=== PATIENT | female | born 1990 | race Two or more races ===

== ENCOUNTER 2019-03-11 22:38 | Inpatient (IN) | payer MEDICAID ==
[~2019-03-11] VITALS: Ht 167.6 cm; Wt 54.4 kg
[2019-03-11 23:50] VITALS: BP 104/61
[2019-03-12] VITALS: BP 104/61
[2019-03-12] MEDS: methylPREDNISolone SOD SUCC 125 MG/2ML VIAL IV SCH ×5 (00:30→16:44)
[2019-03-12] MEDS ORDERED: HYDROCODONE/APAP 5/325MG 1 EACH TABLET PO PRN (00:30)
[2019-03-12] MEDS ORDERED: MAG HYDROX/AL HYDROX/SIMETH 30 ML UDC PO PRN (00:30)
[2019-03-12] MEDS ORDERED: MAGNESIUM HYDROXIDE 30 ML UDC PO PRN (00:30)
[2019-03-12] MEDS: IV NS 0.9% 1,000 ML IV PRN ×2 (00:55→23:17)
[2019-03-12] MEDS: HYDROCODONE/APAP 10/325MG 1 EA TABLET PO PRN ×2 (00:56→23:18)
--- NOTE | 2019-03-12 00:58 | NUR ---
MS RN NOTES PATIENT COMPLAINING OF ABDOMINAL PAIN, 8/10 SHARP. NORCO 10/325 PRN GIVEN. HEATING PAD ON ABDOMEN PLACED. WILL CONTINUE TO MONITOR.
[2019-03-12 01:00] LABS: BASOPHILS # (AUTO) 0.1 /CMM (0.0-0.2); BASOPHILS % (AUTO) 1.4 % (0.0-2.0); EOSINOPHILS % (AUTO) 4.5 % (0.0-6.0); HEMATOCRIT 34 % (33-45); HEMOGLOBIN 10.9 g/dL (11.5-14.8); LYMPHOCYTES # (AUTO) 2.7 /CMM (0.8-4.8); MEAN CORPUSCULAR HGB CONC 32 g/dl (31.0-36.0); MEAN CORPUSCULAR VOLUME 78 fL (82-100); MONOCYTES # (AUTO) 0.4 /CMM (0.1-1.30); MONOCYTES % (AUTO) 8.6 % (2.0-12.0); NEUTROPHILS # (AUTO) 1.7 /CMM (1.8-8.9); NEUTROPHILS % (AUTO) 33.5 % (43.0-81.0); PLATELET COUNT (AUTO) 228 /CMM (150-450); RED BLOOD CELL COUNT(AUTO) 4.37 MIL/uL (4.0-5.2); WHITE BLOOD COUNT (AUTO) 5.2 K/uL (4.3-11.0)
[2019-03-12 01:04] LABS: ALBUMIN 2.6 g/dL (3.4-5.0); BILIRUBIN,TOTAL 0.2 mg/dL (0.2-1.0); CALCIUM, SERUM 8.2 mg/dL (8.5-10.1); CREATININE 0.8 mg/dL (0.6-1.3); PHOSPHORUS 3.7 mg/dL (2.5-4.9); POTASSIUM 3.5 mmol/L (3.5-5.1)
[2019-03-12 01:14] LABS: THYROID STIMULATING HORMONE 2.905 uIU/mL (0.358-3.74)
--- NOTE | 2019-03-12 01:17 | NUR ---
MS RN NOTES PATIENT REFUSED SOLUMEDROL, EXPLAINED THE REASON WHY IT WAS ADMINISTERED AND EDUCATED. STILL REFUSED MEDICATION, WANTS TO TALK TO DOCTOR FIRST BECAUSE MEDICATION HAS NOT BEEN WORKING DURING PREVIOUS VISITS AND MAKES HER SWELL. NORCO 10-325 WAS GIVEN FOR PAIN. WILL CONTINUE TO MONITOR.
--- NOTE | 2019-03-12 01:19 | NUR ---
MS EVAPORATOR REPAIRER NOTES PATIENT RECEIVED VIA GURNEY ACCOMPANIED BY WILL AND CHAVA DIRECT ADMISSION FROM [facility]. A/O x4, ABLE TO AMBULATE AND MAKE NEEDS KNOWN. STABLE ON RA, BREATHING EVEN AND UNLABORED, NO SOB COMPLAINTS. NO ACUTE DISTRESS NOTED. PATIENT HAS COMPLAINTS OF ABDOMINAL PAIN. IV LOCATED ON L AC #20. ORIENTED PATIENT TO ROOM AND STAFF. SAFETY PRECAUTIONS IN PLACE WITH BED IN LOWEST POSITION, BREAKS ON, SIDE RAILS UP X2, AND CALL LIGHT WITHIN REACH. ALL BELONGINGS WERE ACCOUNTED FOR. NO WOUNDS PRESENT. WILL CONTINUE TO MONITOR.
[2019-03-12] MEDS: MORPHINE SULFATE INJ 2 MG/ML DISP.SYRIN IV PRN ×6 (02:15→21:42)
--- NOTE | 2019-03-12 02:18 | NUR ---
MS RN NOTES PATIENT COMPLAINING OF PAIN 8/10 ON ABDOMINAL AREA. SHARP. MORPHINE PRN GIVEN. WILL CONTINUE TO MONITOR.
[2019-03-12] MEDS: ONDANSETRON HCL/PF 4 MG/2 ML VIAL IVP PRN (04:52)
--- NOTE | 2019-03-12 04:57 | NUR ---
MS RN NOTES PATIENTS FEELING NAUSEATED. ZOFRAN PRN GIVEN. WILL CONTINUE TO MONITOR.
--- NOTE | 2019-03-12 06:49 | NUR ---
MS RN CLOSING NOTES PATIENT CURRENTLY RESTING IN BED WITH AT BEDSIDE, A/O X4 ABLE TO MAKE NEEDS KNOWN AND ABLE TO AMBULATE. STABLE ON RA WITH BREATHING EVEN AND UNLABORED, NO SOB NOTED. NO SIGNS OF ACUTE DISTRESS/ NO CURRENT COMPLAINTS OF PAIN, JUST SLIGHT DISCOMFORT IN THE ABDOMINAL AREA. IV LOCATED ON L AC #20 RUNNING NS @ 75 ML/HR. ALL NEEDS WERE ATTENDED TO THROUGHOUT THE NIGHT. SAFETY PRECAUTIONS IN PLACE WITH BED IN LOWEST POSITION, BREAKS ON, AND CALL LIGHT WITHIN REACH. WILL ENDORSE TO ONCOMING SHIFT ABOUT PABLITO.
--- NOTE | 2019-03-12 07:00 | NUR ---
MS/RN Opening note Received patient AOx4, able to response all stimuli, denies any n/v, discomfort or pain at this time, at bed side. Patient refused IVF stated "I'll take fluid instead of that(IVF)!!" No s/s of dehydration observed. Respiratory even unlabored, skin is warm to touch, kept low bed position with elevated HOB. Call light within reach, will continue to monitor.
[2019-03-12] MEDS: PANTOPRAZOLE 40 MG TABLET.DR PO SCH (07:45)
[2019-03-12 08:00] VITALS: BP_SYST 94; BP_SYST 95; BP_DIAS 50
[2019-03-12 08:17] VITALS: BP 88/53
[2019-03-12 11:45] VITALS: BP 114/71
[2019-03-12 16:00] VITALS: BP 112/70
--- NOTE | 2019-03-12 18:45 | NUR ---
MS/RN Closing note Pt in bed, at bed side. given morphine 4mg via IV for abdominal pain at 1840. No s/s of respiratory distress, skin is warm to touch, kept dry. IV site is intact. Call light within reach, will continue to monitor.
--- NOTE | 2019-03-12 19:25 | NUR ---
MS/RN OPENING NOTES RECEIVED PATIENT IN BED, AWAKE, ABLE TO SIT AND STAND AND AMBULATE WITH ASSISTANCE, DISCUSSED PLAN OF CARE, RESPIRATIONS EVEN AND UNLABORED, LAST PAIN MEDICATION GIVEN EARLIER BY AM RN. PATIENT REPORTED PAIN 4/10 AT THIS TIME, HAD ONE BM AND ASKED FOR ICE CHIPS, BED LOCKED, CALL LIGHTS WITHIN REACH, IV SITE PATEN INFUSING 75 ML/HR. WILL MONITOR FOR ANY CHANGES.
[2019-03-12 20:00] VITALS: BP 98/69
--- NOTE | 2019-03-12 21:48 | NUR ---
MS/RN NOTES PATIENT REPORTED PAIN SEVERE 9/10 WITH GRIMACE, GUARDING, MOANING ON MID ABDOMEN, COMFORT MEASURE PROVIDED, DISTRACTED WITH FAMILY INVOLVEMENT AND WATCHING TV CONSTANT PAIN. MORPHINE 4MG IVP ADMINISTERED. PATIENT TOLERATED . WILL MONITOR RELIEF, DISCUSSED SAFETY AND VERBALIZED UNDERSTANDING.
--- NOTE | 2019-03-12 23:24 | NUR ---
MS/RN NOTES BREAKTHROUGH PAIN NORCO 10-325 MG PO GIVEN PO PER PATIENT REQUEST SEVERE PAIN 9/10 IN ABDOMEN, TOLERATED WELL. WILL MONITOR.
[2019-03-13] MEDS: ZOLPIDEM TARTRATE 5 MG TABLET PO PRN ×2 (00:12→23:39)
--- NOTE | 2019-03-13 01:27 | NUR ---
MS/RN NOTES PATIENT IN EXTREME PAIN, UNABLE TO SLEEP, IV REINSERTED ON LEFT FOREARM GAUGE 22. REQUESTED FOR PAIN IV MEDICATION MORPHINE 4 MG. WILL MONITOR.
[2019-03-13] MEDS: MORPHINE SULFATE INJ 2 MG/ML DISP.SYRIN IV PRN ×2 (01:31→06:05)
--- NOTE | 2019-03-13 06:11 | NUR ---
MS/RN NOTES PATIENT AWOKEN FROM SLEEP, GUARDING AND GRIMACING, AMBULATING TO BATHROOM TO RELIEF PAIN, REQUESTED PAIN MEDICATION MORPHINE IVP 4MG, AFDMINISTERED AND MONITORING RELIEF.
[2019-03-13 06:31] LABS: BASOPHILS # (AUTO) 0.1 /CMM (0.0-0.2); BASOPHILS % (AUTO) 1.4 % (0.0-2.0); EOSINOPHILS % (AUTO) 6.5 % (0.0-6.0); HEMATOCRIT 37 % (33-45); HEMOGLOBIN 11.6 g/dL (11.5-14.8); LYMPHOCYTES # (AUTO) 2.8 /CMM (0.8-4.8); LYMPHOCYTES % (AUTO) 48.4 % (20.0-44.0); MEAN CORPUSCULAR HGB CONC 32 g/dl (31.0-36.0); MEAN CORPUSCULAR VOLUME 78 fL (82-100); MONOCYTES # (AUTO) 0.5 /CMM (0.1-1.30); NEUTROPHILS # (AUTO) 2.1 /CMM (1.8-8.9); NEUTROPHILS % (AUTO) 35.7 % (43.0-81.0); PLATELET COUNT (AUTO) 226 /CMM (150-450); RED BLOOD CELL COUNT(AUTO) 4.68 MIL/uL (4.0-5.2); WHITE BLOOD COUNT (AUTO) 5.9 K/uL (4.3-11.0)
[2019-03-13 06:44] LABS: CALCIUM, SERUM 8.6 mg/dL (8.5-10.1); CREATININE 0.9 mg/dL (0.6-1.3); PHOSPHORUS 4.4 mg/dL (2.5-4.9); POTASSIUM 4.2 mmol/L (3.5-5.1)
--- NOTE | 2019-03-13 07:30 | NUR ---
MS/RN Opening note Patient received resting in bed, A.O x4, partner is at the bedside. Patient is showing no signs of acute distress or SOB, breathing in even and unlabored, saturating >95% on RA. IV line is clean and patent. Bed is in lowest position, side rails x2 in upright position, call light is within reach and patient is aware of how to call for assistance when needed. Safety precautions enforced. Will continue with plan of care.
--- NOTE | 2019-03-13 07:33 | NUR ---
MS/RN CLOSING NOTES PATIENT AWAKE, ALERT, X4 ABLE TO VERBALIZE NEEDS, PAIN MEDICATION AND MONITORED FOR RELIEF, DISCUSSED OPLAN OF CARE WITH AM RN , RESPIRATIONS EVEN AND UNLABORED. KEPT COMFORTABLE. MONITORED FOR ANY CHANGES. ON IV FLUIDS. BED LOCKED, CALL LIGHTS WITHIN REACH.
[2019-03-13 08:00] VITALS: BP 111/72
[2019-03-13] MEDS: methylPREDNISolone SOD SUCC 125 MG/2ML VIAL IV SCH ×2 (08:21→17:00)
[2019-03-13] MEDS: PANTOPRAZOLE 40 MG TABLET.DR PO SCH (08:22)
[2019-03-13] MEDS ORDERED: LORAZEPAM INJ 2 MG/ML VIAL IV PRN (08:30)
[2019-03-13] MEDS: HYDROMORPHONE 1 MG/1 ML DISP.SYRIN IV PRN ×4 (09:22→21:29)
[2019-03-13 16:00] VITALS: BP 111/63
--- NOTE | 2019-03-13 19:34 | NUR ---
MS/RN closing note Patient received resting in bed, A.O x4. Patient is showing no signs of acute distress or SOB, breathing in even and unlabored, saturating >95% on RA. IV line is clean and patent. Bed is in lowest position, side rails x2 in upright position, call light is within reach and patient is aware of how to call for assistance when needed. Safety precautions enforced. Will endorse to shift foreman for leidy.
--- NOTE | 2019-03-13 19:50 | NUR ---
MS RN NOTE: PATIENT RESTING IN BED, NO ACUTE DISTRESS NOTED. BREATHING EVEN AND UNLABORED, NO SOB NOTED. IV TO LFA IN PLACE. BED LOCKED AND IN LOWEST POSITION, CALL LIGHT IN REACH. WILL CONTINUE TO MONITOR.
[2019-03-13 20:00] VITALS: BP 106/69
--- NOTE | 2019-03-13 21:30 | NUR ---
MS RN NOTE: PATIENT COMPLAINS OF ABDOMINAL PAIN 8/, DILAUDID 1MG IV GIVEN PER MD ORDER. WILL CONTINUE TO MONITOR.
[2019-03-14] MEDS: HYDROMORPHONE 1 MG/1 ML DISP.SYRIN IV PRN ×6 (00:45→22:42)
[2019-03-14] MEDS: IV NS 0.9% 1,000 ML IV PRN (05:45)
--- NOTE | 2019-03-14 06:15 | NUR ---
MS RN NOTE: PATIENT RESTING IN BED, NO ACUTE DISTRESS NOTED. BREATHING EVEN AND UNLABORED, NO SOB NOTED. IV TO LFA IN PLACE. PATIENT COMPLAINS OF ABDOMINAL PAIN 11/21, DILAUDID 1MG IV GIVEN PER MD ORDER. BED LOCKED AND IN LOWEST POSITION, CALL LIGHT IN REACH. WILL ENDORSE TO DAY NURSE TO CONTINUE TO WITH PLAN OF CARE.
--- NOTE | 2019-03-14 07:30 | NUR ---
MS/RN Opening note Patient received resting in bed, A/O x4, breathing is even and unlabored, saturating >95% on RA. Patient is in no acute distress at this time. IV line is clean and patent. Patient is able to ambulate to the bathroom, skin is intact. Patient has no new concerns at this time. Bed is in lowest position, side rails x2 in upright position, call light is within reach and patient is aware of how to call for assistance when needed. Partner at the bedside. Will continue with plan of care.
[2019-03-14] MEDS: PANTOPRAZOLE 40 MG TABLET.DR PO SCH (09:20)
[2019-03-14] MEDS: MESALAMINE 400 MG CAP PO SCH ×3 (09:20→17:48)
[2019-03-14 12:29] LABS: CALCIUM, SERUM 8.5 mg/dL (8.5-10.1); CREATININE 0.8 mg/dL (0.6-1.3)
[2019-03-14 12:41] LABS: BASOPHILS # (AUTO) 0.1 /CMM (0.0-0.2); BASOPHILS % (AUTO) 1.4 % (0.0-2.0); HEMATOCRIT 38 % (33-45); HEMOGLOBIN 12.1 g/dL (11.5-14.8); LYMPHOCYTES % (AUTO) 40.7 % (20.0-44.0); MEAN CORPUSCULAR HGB CONC 32 g/dl (31.0-36.0); MEAN CORPUSCULAR VOLUME 79 fL (82-100); MONOCYTES # (AUTO) 0.5 /CMM (0.1-1.30); MONOCYTES % (AUTO) 9.4 % (2.0-12.0); NEUTROPHILS % (AUTO) 39.5 % (43.0-81.0); PLATELET COUNT (AUTO) 231 /CMM (150-450); RED BLOOD CELL COUNT(AUTO) 4.84 MIL/uL (4.0-5.2)
[2019-03-14] MEDS ORDERED: BELLADONNA ALK/PHENOBARB TAB 16.2 MG TABLET PO PRN (13:30)
[2019-03-14] MEDS ORDERED: PHENOBARBITAL 30 MG TABLET PO PRN (14:00)
[2019-03-14] MEDS: ONDANSETRON HCL/PF 4 MG/2 ML VIAL IVP PRN (14:45)
[2019-03-14 16:00] VITALS: BP 108/74
--- NOTE | 2019-03-14 19:13 | NUR ---
MS/RN Closing note Patient is resting in bed, A/O x4, breathing is even and unlabored, saturating >95% on RA. Patient is in no acute distress at this time. IV line is clean and patent. Patient is able to ambulate to the bathroom, skin is intact. Patient refused linen change and shower today. Patient requests for privacy. All patient needs met, all due meds given. Bed is in lowest position, side rails x2 in upright position, call light is within reach and patient is aware of how to call for assistance when needed. Partner at the bedside. Will endorse to warehouse worker 2nd shift.
--- NOTE | 2019-03-14 20:00 | NUR ---
MS RN NOTES RECEIVED PATIENT AWAKE IN BED WITH NO DISTRESS NOTED. CALL LIGHT WITHIN REACH. FAMILY AT BEDSIDE. NO C/O PAIN OR DISCOMFORT. PERIPHERAL LINE INTACT AND PATENT. ENCOURAGED USE OF CALL LIGHT FOR ASSISTANCE AND VERBALIZED GOOD UNDERSTANDING. ROOM FREE OF CLUTTER AND BELONGINGS KEPT NEAR BEDSIDE. BED IN LOW LOCK SETTING. WILL CONTINUE TO MONITOR.
[2019-03-15] MEDS: HYDROCODONE/APAP 10/325MG 1 EA TABLET PO PRN (00:02)
--- NOTE | 2019-03-15 00:17 | NUR ---
PATIENT WITH C/O URINARY FREQUENCY, BURNING, AND BLADDER SPASMS. DR. EL MADE AWARE WITH ORDERS FOR UA AND PYRIDIUM [id number]. ORDERS NOTED AND CARRIED OUT. PATIENT AWARE AND VERBALIZED GOOD UNDERSTANDING.
--- NOTE | 2019-03-15 00:18 | NUR ---
URINE SPECIMEN OBTAINED VIA CLEAN CATCH
[2019-03-15] MEDS ORDERED: PHENAZOPYRIDINE HCL 200 MG TABLET PO SCH (00:30)
[2019-03-15 00:52] LABS: APPEARANCE,URINE CLEAR (CLEAR); BILIRUBIN,URINE NEGATIVE (NEGATIVE); BLOOD, URINE SMALL Ery/uL (NEGATIVE); COLOR,URINE YELLOW (YELLOW); KETONES,URINE NEGATIVE (NEGATIVE); LEUKOCYTE ESTERASE ,URINE NEGATIVE (NEGATIVE); NITRITE, URINE NEGATIVE (NEGATIVE); PROTEIN,URINE NEGATIVE (NEGATIVE); UGLUCOSE NEGATIVE (NEGATIVE); UROBILINOGEN,URINE 0.2 EU/dL (0.2)
[2019-03-15] MEDS: ZOLPIDEM TARTRATE 5 MG TABLET PO PRN ×2 (00:52→21:58)
--- NOTE | 2019-03-15 02:44 | NUR ---
PYRIDIUM NOT AVAILABLE, WILL ADMINISTER IN AM
[2019-03-15] MEDS: HYDROMORPHONE 1 MG/1 ML DISP.SYRIN IV PRN ×5 (03:12→20:43)
--- NOTE | 2019-03-15 07:15 | NUR ---
ms rn received on bed, awake,alert,oriented x4,respirations even and unlabored,not in any form of distress,came in w/ ulcerative colitis, w/ pain at this time,will monitor patient.
--- NOTE | 2019-03-15 07:16 | NUR ---
MS RN NOTES PATIENT ASLEEP IN BED WITH NO DISTRESS NOTED. CALL LIGHT WITHIN REACH. BOYFRIEND AT BEDSIDE. NO FURTHER C/O PAIN OR DISCOMFORT. ALL DUE MEDS GIVEN ORDERED WITH NO ASE. PERIPHERAL LINE INTACT AND PATENT. BED IN LOW LOCK SETTING. ROOM FREE OF CLUTTER AND BELONGINGS KEPT NEAR BEDSIDE. WILL ENDORSE TO ONCOMING SHIFT.
[2019-03-15] MEDS: PANTOPRAZOLE 40 MG TABLET.DR PO SCH (07:55)
[2019-03-15 08:00] VITALS: BP 119/75
[2019-03-15] MEDS: MESALAMINE 400 MG CAP PO SCH ×3 (08:27→16:27)
[2019-03-15] MEDS: PHENAZOPYRIDINE HCL 200 MG TABLET PO SCH ×2 (08:28→16:27)
--- NOTE | 2019-03-15 09:00 | NUR ---
ms [facility] breakfast served,due meds given,barely tolerated.
--- NOTE | 2019-03-15 09:20 | NUR ---
ms gucci was seen by edwin mariano/ orders made and carried out.
[2019-03-15 09:21] LABS: BASOPHILS # (AUTO) 0.1 /CMM (0.0-0.2); BASOPHILS % (AUTO) 0.9 % (0.0-2.0); EOSINOPHILS % (AUTO) 4.8 % (0.0-6.0); HEMATOCRIT 37 % (33-45); HEMOGLOBIN 11.6 g/dL (11.5-14.8); LYMPHOCYTES # (AUTO) 2.3 /CMM (0.8-4.8); LYMPHOCYTES % (AUTO) 24.8 % (20.0-44.0); MEAN CORPUSCULAR HGB CONC 32 g/dl (31.0-36.0); MEAN CORPUSCULAR VOLUME 79 fL (82-100); MONOCYTES # (AUTO) 0.7 /CMM (0.1-1.30); MONOCYTES % (AUTO) 8.2 % (2.0-12.0); NEUTROPHILS # (AUTO) 5.6 /CMM (1.8-8.9); NEUTROPHILS % (AUTO) 61.3 % (43.0-81.0); PLATELET COUNT (AUTO) 203 /CMM (150-450); RED BLOOD CELL COUNT(AUTO) 4.67 MIL/uL (4.0-5.2); WHITE BLOOD COUNT (AUTO) 9.1 K/uL (4.3-11.0)
[2019-03-15 09:29] LABS: CALCIUM, SERUM 8.7 mg/dL (8.5-10.1); CREATININE 0.8 mg/dL (0.6-1.3); POTASSIUM 3.9 mmol/L (3.5-5.1)
[2019-03-15] MEDS: NITROFURANTOIN/NITROFURAN MAC 100 MG CAPSULE PO SCH ×2 (13:28→20:15)
[2019-03-15] MEDS: ONDANSETRON HCL/PF 4 MG/2 ML VIAL IVP PRN (13:53)
[2019-03-15] MEDS: ACETAMINOPHEN 325 MG TABLET PO PRN ×2 (13:53→20:15)
[2019-03-15 16:00] VITALS: BP 105/65
--- NOTE | 2019-03-15 17:00 | NUR ---
ms rn on bed, no distress noted.
--- NOTE | 2019-03-15 18:55 | NUR ---
ms rn on bed, no distress noted.
--- NOTE | 2019-03-15 19:29 | NUR ---
MS RN OPENING NOTE RECEIVED PATIENT IN BED. A/OX4. TOLERATING ROOM AIR. RESPIRATIONS ARE EVEN AND UNLABORED. NO S/S SOB NOTED. STATES SHE IS IN PAIN. INFORMED HER OF WHEN THE NEXT DOSE OF PAIN MEDICATIONS IS AVAILABLE. IN NO APPARENT DISTRESS. IV ACCESS IN LFA#22 CURRENTLY PATENT AND SALINE LOCKED. BED IS LOW AND LOCKED, HOB ELEVATED IN SEMI FOWLERS, SIDE RIALS UPX2. FAMILY AT BEDSIDE. CALL LIGHT WITHIN REACH. WILL CONTINUE TO MONITOR.
[2019-03-15 20:00] VITALS: BP_SYST 115; BP_SYST 119; BP_DIAS 59; BP_DIAS 71
--- NOTE | 2019-03-15 20:16 | NUR ---
MS RN NOTE ADMINISTERED PRN TYLENOL 650MG FOR C/O HEADACHE. WILL CONTINUE TO MONITOR.
--- NOTE | 2019-03-15 20:48 | NUR ---
MS RN NOTE ADMINISTERED PRN DILAUDID 1MG FOR PAIN 8/10 D/T ABDOMINAL PAIN AND ACHING MUSCLES. WILL CONTINUE TO MONITOR.
--- NOTE | 2019-03-15 21:53 | NUR ---
MS RN NOTE PATIENT NO LONGER COMPLAINS OF HEADACHE.
--- NOTE | 2019-03-15 21:58 | NUR ---
MS RN NOTE ADMINISTERED PRN AMBIEN 5MG PER PATIENT REQUEST FOR SLEEP. WILL CONTINUE TO MONITOR.
[2019-03-16] MEDS: HYDROMORPHONE 1 MG/1 ML DISP.SYRIN IV PRN ×2 (00:38→00:49)
--- NOTE | 2019-03-16 00:49 | NUR ---
MS RN NOTE ADMINISTERED PRN DILUADID 1MG FOR PAIN 9/10 IN ABDOMEN, AND ACHING MUSCLES. WILL CONTINUE TO MONITOR.
[2019-03-16] MEDS: ACETAMINOPHEN 325 MG TABLET PO PRN ×2 (05:25→09:28)
--- NOTE | 2019-03-16 05:25 | NUR ---
MS RN NOTE ADMINISTERED PRN TYLENOL 650MG FOR C/O HEADACHE AND MUSCLE ACHES. WILL CONTINUE TO MONITOR.
--- NOTE | 2019-03-16 06:09 | NUR ---
MS RN CLOSING NOTE PATIENT IN BED. A/OX4. REMAINS TOLERATING ROOM AIR. RESPIRATIONS ARE EVEN AND UNLABORED. NO SOB NOTED. MANAGED PAIN WITH DILAUDID 1MG THROUGHOUT NIGHT WELL TYLENL FOR C/O HEADACHE. NO DISTRESS NOTED. IV ACCESS MAINTAINED IN LFA#22 CURRENTLY PATENT AND SALINE LOCKED. BED IS LOW AND LOCKED, HOB FLAT, SIDE RIALS UPX2. FAMILY REMAINS AT BEDSIDE. CALL LIGHT WITHIN REACH. WILL ENDORSE TO NEXT SHIFT.
[2019-03-16 07:09] LABS: BASOPHILS # (AUTO) 0.1 /CMM (0.0-0.2); BASOPHILS % (AUTO) 1.3 % (0.0-2.0); EOSINOPHILS % (AUTO) 5.9 % (0.0-6.0); HEMATOCRIT 38 % (33-45); HEMOGLOBIN 12.1 g/dL (11.5-14.8); LYMPHOCYTES % (AUTO) 36.7 % (20.0-44.0); MEAN CORPUSCULAR HGB CONC 32 g/dl (31.0-36.0); MEAN CORPUSCULAR VOLUME 78 fL (82-100); MONOCYTES # (AUTO) 0.5 /CMM (0.1-1.30); MONOCYTES % (AUTO) 9.3 % (2.0-12.0); NEUTROPHILS # (AUTO) 2.6 /CMM (1.8-8.9); NEUTROPHILS % (AUTO) 46.8 % (43.0-81.0); PLATELET COUNT (AUTO) 230 /CMM (150-450); RED BLOOD CELL COUNT(AUTO) 4.89 MIL/uL (4.0-5.2); WHITE BLOOD COUNT (AUTO) 5.5 K/uL (4.3-11.0)
[2019-03-16 07:37] LABS: CALCIUM, SERUM 9.1 mg/dL (8.5-10.1); CREATININE 0.9 mg/dL (0.6-1.3)
[2019-03-16 08:00] VITALS: BP 116/75
--- NOTE | 2019-03-16 08:00 | NUR ---
RN NOTES RECEIVED PATIENT IN THE BED SLEEPING. V/S STABLE, NO ACUTE RESPIRATORY DISTRESS, BOYFRIEND NEXT TO THE BED. V/S WNL. CALL LIGHT NEAR TO REACH, IV ACCESS ON LEFT FA INTACT. CONTINUED MONITORING.
[2019-03-16] MEDS: NITROFURANTOIN/NITROFURAN MAC 100 MG CAPSULE PO SCH (09:21)
[2019-03-16] MEDS: PANTOPRAZOLE 40 MG TABLET.DR PO SCH (09:21)
[2019-03-16] MEDS: MESALAMINE 400 MG CAP PO SCH ×2 (09:22→12:12)
[2019-03-16] MEDS: PHENAZOPYRIDINE HCL 200 MG TABLET PO SCH (09:23)
--- NOTE | 2019-03-16 09:28 | NUR ---
RN NOTES ADMINISTERED TYLENOL 650 MG PO PRN FOR STOMACHACHE PER PATIENT REQUEST, ALSO ADMINISTERED SCHEDULED MEDICATION. NEXT TO THE BED. CALL LIGHT WITHIN TO REACH. SAFETY PRECAUTION MAINTAINED ALL THE TIME.
--- NOTE | 2019-03-16 11:03 | NUR ---
rn notes patient going to discharge home per hospitalist EVA Suarez's order. patient will follow primary MD.
[2019-03-16] MEDS ORDERED: PHEN-704 PO (12:25)
[2019-03-16] MEDS ORDERED: ACET325C7 PO (12:25)
[2019-03-16] MEDS ORDERED: ONDA4TAB5 PO (12:25)
[2019-03-16] MEDS ORDERED: NITR100C6 PO (12:25)
[2019-03-16] MEDS ORDERED: MESA400C3 PO (12:25)
--- NOTE | 2019-03-16 13:02 | NUR ---
MANAGER DISTRIBUTION CENTER NOTES PATIENT DISCHARGE AT THIS TIME GOING HOME. PATIENT STABLE, NO ACUTE RESPIRATORY DISTRESS, V/S WNL, REFUSED PAIN. MED RECONCILIATION AND DISCHARGE ORDER REVIEWED AND EXPLAINED TO PATIENT AND BOYFRIEND. PATIENT VERBALIZED UNDERSTANDING. BELONGING TO THE PATIENT/ PATIENT WILL FOLLOW PRIMARY MD. PRESCRIPTION ELECTRONICALLY DON VIA FISCAL ACCOUNTING CLERK REGGIE. PATIENT ESCORTED TO THE LOBBY FOR SAFETY. PATIENT SIGN PAPERWORK. PAPERWORK HANDED TO THE PATIENT, MANAGER PROCESS BY BOYFRIEND JULIO YANG PHONE # [phone].
== END 2019-03-16 13:00 | disposition home or self-care (01) | DRG 245 ==
LOC: MED 23:41
PROVIDERS: ADMIT Hospitalist; ATTEND Nurse Practitioner Acute Care
DX: K51.911 Ulcerative colitis, unspecified with rectal bleeding (principal); E43 Unspecified severe protein-calorie malnutrition; E88.09 Other disorders of plasma-protein metabolism, not elsewhere classified; D64.9 Anemia, unspecified; J45.909 Unspecified asthma, uncomplicated; D50.9 Iron deficiency anemia, unspecified; Z68.1 Body mass index [BMI] 19.9 or less, adult; Z87.440 Personal history of urinary (tract) infections
CPT/HCPCS: 36415; 80048-TC; 80053-TC; 80061-TC; 81000-TC; 83690-TC; 83735-TC; 84100-TC; 84443-TC; 84703-TC; 85025-TC; 85652-TC; 86140-TC; 87081-TC; G0378; J1170; J2270; J2405; J2930; J7030